=== PATIENT | female | born 1950 | race Caucasian/White ===

== ENCOUNTER 2022-03-13 23:42 | Inpatient (IN) ==
[2022-03-13 23:59] LABS: ABS Eosinophils 0.1 10^3/ul (0-0.6); ABS Lymphocytes 0.9 10^3/ul (1.0-4.8); ABS Monocytes 0.3 10^3/ul (0-0.8); ABS Neutrophils 8.2 10^3/ul (1.5-7.7); Hematocrit 33 % (35-47); Hemoglobin 10.7 g/dL (12.0-16.0); Lymphocyte % 9.8 %; Mean Corpuscular HGB Conc 32 g/dL (31-36); Mean Corpuscular Hemoglobin 29 pg (27-31); Mean Corpuscular Volume 91 fL (80-97); Platelet Count 244 10^3/uL (150-450); Red Blood Count 3.68 10^6 /uL (3.70-4.87); Red Cell Distribution Width 15 % (10-15); White Blood Count 9.6 10^3/uL (3.5-10.8)
[2022-03-14 00:22] LABS: High Sens Troponin Baseline 39 pg/mL (<15)
[2022-03-14] MEDS ORDERED: Droperidol 5 MG/2 ML 2 ML VIAL IV ONE (00:36)
[2022-03-14 00:42] LABS: ALT 4 U/L (7-52); Albumin 3.8 g/dL (3.2-5.2); Albumin/Globulin Ratio 1.2 (1-3); Alkaline Phosphatase 52 U/L (35-149); Blood Urea Nitrogen 30 mg/dL (6-24); CO2 Carbon Dioxide 20 mmol/L (22-32); Chloride 105 mmol/L (101-111); Globulin 3.1 g/dL (2-4); Glucose 103 mg/dL (70-100); Sodium 137 mmol/L (135-145); Total Protein 6.9 g/dL (6.4-8.9); eGFR CKD-EPI 14.4 (>60)
[2022-03-14 00:48] LABS: Anion Gap 12 mmol/L (2-11); Calcium 15.2 mg/dL (8.6-10.3)
[2022-03-14] MEDS ORDERED: NS 0.9% 1000 ml BAG 2,000 ML IV ONE (00:54)
[2022-03-14 01:28] LABS: INR 0.97 (0.89-1.11)
[2022-03-14] MEDS ORDERED: Morphine 4 MG/ML VIAL (1 ml) IV ONE (02:01)
[2022-03-14] MEDS ORDERED: Morphine 4 MG/ML VIAL (1 ml) IV PRN ×2 (02:01→06:31)
[2022-03-14] MEDS ORDERED: Ondansetron 4 mg VIAL 2 MG/ML 2 ml VIAL IV PRN (02:04)
[2022-03-14 02:09] LABS: High Sensitivity Troponin 1 Hr 59 pg/mL (<15)
[2022-03-14 02:20] LABS: Potassium Redraw 3.1 mmol/L (3.5-5.0)
[2022-03-14] MEDS ORDERED: Calcitonin (Salmon) INJ 200 UNITS/ML 2 ML VIAL (400 units) SUBCUT ONE ×2 (02:54→19:42)
[2022-03-14] MEDS ORDERED: Zoledronic Acid 4 MG in NS 0.9% 100 ml BAG 100 ML IVPB ONE (02:56)
[2022-03-14] MEDS ORDERED: Potassium Chlor 20 meq TAB.ER PO ONE ×2 (03:01→03:31)
[2022-03-14] MEDS ORDERED: Magnesium Sulfate 2 gm BAG 2 GM/50 ML BAG IVPB ONE ×2 (03:11→03:30)
[2022-03-14 03:28] LABS: Urine Appearance Clear; Urine Color Yellow; Urine Ketones Negative (Negative); Urine Specific Gravity 1.015 (1.005-1.030); Urine Urobilinogen 0.2 (Negative) (Negative)
[2022-03-14 03:29] LABS: Urine Bilirubin Negative (Negative); Urine Blood Trace (Intact) (Negative); Urine Glucose Negative (Negative); Urine Nitrite Negative (Negative); Urine Protein 1+ (30 mg/dL) (Negative)
[2022-03-14 03:30] LABS: Magnesium 1.3 mg/dL (1.9-2.7)
[2022-03-14 03:46] LABS: Urine Bacteria Absent (Absent); Urine Red Blood Cell 2+(6-10/hpf) (Absent); Urine Squamous Epithelial Cell Present (Absent); Urine Transitional Epithelial Present (Absent); Urine White Blood Cell 3+(>20/hpf) (Absent); Urine Yeast Present (Absent)
[2022-03-14] MEDS: NS 0.9% 1000 ml BAG 1,000 ML IV SCH ×4 (03:57→22:14)
[2022-03-14 05:08] LABS: Potassium 2.9 mmol/L (3.5-5.0); eGFR CKD-EPI 15.7 (>60)
[2022-03-14 05:13] LABS: Calcium 14.4 mg/dL (8.6-10.3)
[2022-03-14 05:29] LABS: Calcium (PTH Intact) 14.4 mg/dL (8.6-10.3)
[2022-03-14] MEDS: Enoxaparin 30 MG/0.3 ML SYR SUBCUT SCH (06:33)
[2022-03-14 10:52] LABS: Hematocrit 31 % (35-47); Hemoglobin 10.2 g/dL (12.0-16.0); Mean Corpuscular HGB Conc 33 g/dL (31-36); Mean Corpuscular Hemoglobin 29 pg (27-31); Mean Corpuscular Volume 90 fL (80-97); Mean Platelet Volume 8.1 fL (7.4-10.4); Platelet Count 211 10^3/uL (150-450); Red Blood Count 3.49 10^6 /uL (3.70-4.87); Red Cell Distribution Width 15 % (10-15); White Blood Count 16.8 10^3/uL (3.5-10.8)
[2022-03-14] MEDS: Morphine 4 MG/ML VIAL (1 ml) IV PRN ×4 (10:59→21:17)
[2022-03-14] MEDS: [UNRECOGNIZED DRUG - REMARK] PO SCH ×2 (10:59→21:22)
[2022-03-14 11:28] LABS: High Sensitivity Troponin 3 Hr 74 pg/mL (<15)
[2022-03-14 12:31] LABS: Anion Gap 8 mmol/L (2-11); CO2 Carbon Dioxide 22 mmol/L (22-32); Chloride 106 mmol/L (101-111); Magnesium 1.3 mg/dL (1.9-2.7); Potassium 4.4 mmol/L (3.5-5.0); Sodium 136 mmol/L (135-145)
[2022-03-14 12:37] LABS: Blood Urea Nitrogen 30 mg/dL (6-24); Glucose 99 mg/dL (70-100); eGFR CKD-EPI 17.7 (>60)
[2022-03-14 12:50] LABS: Calcium 13.2 mg/dL (8.6-10.3)
[2022-03-14 12:54] LABS: Total Iron Binding Capacity 309 mcg/dL (250-450); Transferrin 221 mg/dL (203-362)
[2022-03-14 13:04] LABS: % Iron Saturation 6 % (15-55); Iron < 20 ug/dL (50-212); Unsaturated Iron Binding 289 ug/dL
[2022-03-14] MEDS ORDERED: Magnesium Sulf 4 GM/100 ML IV 4,000 MG/100 ML BAG IVPB ONE (13:11)
[2022-03-14 14:02] LABS: Ferritin 35.4 ng/mL (11-307)
[2022-03-14 19:54] LABS: Calcium 12.1 mg/dL (8.6-10.3); Magnesium 3.4 mg/dL (1.9-2.7); Potassium 4.2 mmol/L (3.5-5.0); eGFR CKD-EPI 21.9 (>60)
[2022-03-15] MEDS: Morphine 4 MG/ML VIAL (1 ml) IV PRN ×4 (01:28→08:34)
[2022-03-15 05:54] LABS: Hematocrit 26 % (35-47); Hemoglobin 8.4 g/dL (12.0-16.0); Mean Corpuscular HGB Conc 33 g/dL (31-36); Mean Corpuscular Hemoglobin 30 pg (27-31); Mean Corpuscular Volume 91 fL (80-97); Mean Platelet Volume 8.4 fL (7.4-10.4); Platelet Count 170 10^3/uL (150-450); Red Blood Count 2.82 10^6 /uL (3.70-4.87); Red Cell Distribution Width 15 % (10-15); White Blood Count 8.8 10^3/uL (3.5-10.8)
[2022-03-15 06:12] LABS: Calcium 10.4 mg/dL (8.6-10.3); Magnesium 2.6 mg/dL (1.9-2.7); Potassium 3.5 mmol/L (3.5-5.0); eGFR CKD-EPI 26.4 (>60)
[2022-03-15] MEDS: Enoxaparin 30 MG/0.3 ML SYR SUBCUT SCH (06:18)
[2022-03-15] MEDS: [UNRECOGNIZED DRUG - REMARK] PO SCH ×2 (08:34→22:28)
[2022-03-15] MEDS ORDERED: NS 0.9% 1000 ml BAG 1,000 ML IV SCH ×2 (10:37→10:38)
[2022-03-15] MEDS ORDERED: NS 0.9% 500 ml BAG 500 ML IV SCH (11:00)
[2022-03-15] MEDS: Morphine 2 MG/ML SYRINGE IV PRN (12:05)
[2022-03-15 12:23] LABS: Free T3 2.1 pg/mL (2.5-3.9)
[2022-03-15 12:24] LABS: TSH Ultra Thyroid Stim Horm 0.55 mcIU/mL (0.34-5.60)
[2022-03-15 12:26] LABS: Free T4 1.4 ng/dL (0.61-1.12)
[2022-03-15] MEDS ORDERED: Midazolam 10 mg/10 ml VIAL 1 mg/ml 10 ml VIAL (10 mg) ONE (16:30)
[2022-03-15] MEDS ORDERED: fentaNYL 100 mcg/2 ml 50 MCG/ML VIAL ONE (16:31)
[2022-03-16] MEDS: Morphine 2 MG/ML SYRINGE IV PRN ×6 (02:08→20:46)
[2022-03-16] MEDS: Enoxaparin 30 MG/0.3 ML SYR SUBCUT SCH (06:07)
[2022-03-16 07:05] LABS: Hematocrit 26 % (35-47); Hemoglobin 8.5 g/dL (12.0-16.0); Mean Corpuscular HGB Conc 33 g/dL (31-36); Mean Corpuscular Hemoglobin 30 pg (27-31); Mean Corpuscular Volume 90 fL (80-97); Mean Platelet Volume 8.6 fL (7.4-10.4); Platelet Count 179 10^3/uL (150-450); Red Blood Count 2.84 10^6 /uL (3.70-4.87); Red Cell Distribution Width 15 % (10-15); White Blood Count 6.5 10^3/uL (3.5-10.8)
[2022-03-16 07:17] LABS: Calcium 8.8 mg/dL (8.6-10.3); Potassium 2.8 mmol/L (3.5-5.0); eGFR CKD-EPI 30.6 (>60)
[2022-03-16] MEDS ORDERED: Potassium Chlor 20 meq TAB.ER PO ONE (07:22)
[2022-03-16] MEDS: Dextrose 50% Syringe 50 ml 25 GM/50 ML SYRINGE IV PUSH PRN ×2 (08:03→14:46)
[2022-03-16] MEDS ORDERED: Glucose ORAL 15 GM TUBE PO ONE (08:17)
[2022-03-16] MEDS: [UNRECOGNIZED DRUG - REMARK] PO SCH ×2 (09:48→20:45)
[2022-03-16] MEDS: cefTRIAXone 1 gm/50 mL D5W 1 GM/50 ML BAG IV SCH (11:48)
[2022-03-16] MEDS: Iron Sucrose 200 MG in NS 0.9% 100 ml BAG 100 ML IVPB SCH (13:01)
[2022-03-16] MEDS ORDERED: D5NS 0.9% 1000 ml BAG 1,000 ML IV SCH (18:00)
[2022-03-17] MEDS: Morphine 2 MG/ML SYRINGE IV PRN ×6 (00:07→20:02)
[2022-03-17] MEDS: Enoxaparin 30 MG/0.3 ML SYR SUBCUT SCH (06:12)
[2022-03-17] MEDS: Iron Sucrose 200 MG in NS 0.9% 100 ml BAG 100 ML IVPB SCH (08:37)
[2022-03-17] MEDS: [UNRECOGNIZED DRUG - REMARK] PO SCH ×2 (08:37→20:04)
[2022-03-17] MEDS ORDERED: Potassium Chlor 20 meq TAB.ER PO SCH ×2 (09:00→17:00)
[2022-03-17 11:13] LABS: Hematocrit 25 % (35-47); Hemoglobin 8.6 g/dL (12.0-16.0); Mean Corpuscular HGB Conc 34 g/dL (31-36); Mean Corpuscular Hemoglobin 30 pg (27-31); Mean Corpuscular Volume 88 fL (80-97); Mean Platelet Volume 7.8 fL (7.4-10.4); Platelet Count 167 10^3/uL (150-450); Red Blood Count 2.86 10^6 /uL (3.70-4.87); Red Cell Distribution Width 15 % (10-15); White Blood Count 5.7 10^3/uL (3.5-10.8)
[2022-03-17] MEDS: cefTRIAXone 1 gm/50 mL D5W 1 GM/50 ML BAG IV SCH (11:20)
[2022-03-17 11:52] LABS: Calcium 7.4 mg/dL (8.6-10.3); Magnesium 1.4 mg/dL (1.9-2.7); Potassium 2.8 mmol/L (3.5-5.0); eGFR CKD-EPI 39.2 (>60)
[2022-03-17] MEDS: Pantoprazole 80 mg in NS BAG 80 MG/250 ML BAG IV SCH (14:33)
[2022-03-17] MEDS ORDERED: Magnesium Sulfate IV 3 GM in NS 0.9% 100 ml BAG 100 ML IVPB ONE (14:41)
[2022-03-17] MEDS ORDERED: Magnesium Sulfate 2 GM IV (Premix) IVPB ONE (15:00)
[2022-03-17] MEDS ORDERED: Magnesium Sulfate 1 GM IV 1 GM/100 ML BAG IV ONE (16:00)
[2022-03-17] MEDS: KCL 20 MEQ/100 ML IVPREMIX 20 MEQ/100 ML BAG IV SCH ×2 (18:00→21:40)
[2022-03-18] MEDS: Pantoprazole 80 mg in NS BAG 80 MG/250 ML BAG IV SCH ×2 (00:03→11:01)
[2022-03-18] MEDS: Morphine 2 MG/ML SYRINGE IV PRN ×6 (00:08→19:04)
[2022-03-18] MEDS: Enoxaparin 30 MG/0.3 ML SYR SUBCUT SCH (05:29)
[2022-03-18 07:55] LABS: Calcium 6.8 mg/dL (8.6-10.3); Magnesium 1.8 mg/dL (1.9-2.7); eGFR CKD-EPI 44.8 (>60)
[2022-03-18 08:12] LABS: Potassium 2.6 mmol/L (3.5-5.0)
[2022-03-18] MEDS ORDERED: Potassium Chlor 20 meq TAB.ER PO ONE (08:32)
[2022-03-18] MEDS: [UNRECOGNIZED DRUG - REMARK] PO SCH ×2 (10:00→20:25)
[2022-03-18] MEDS: Iron Sucrose 200 MG in NS 0.9% 100 ml BAG 100 ML IVPB SCH (10:00)
[2022-03-18] MEDS: KCL 20 MEQ/100 ML IVPREMIX 20 MEQ/100 ML BAG IV SCH ×3 (10:01→15:25)
[2022-03-18] MEDS: cefTRIAXone 1 gm/50 mL D5W 1 GM/50 ML BAG IV SCH (10:53)
[2022-03-18] MEDS ORDERED: Aminophylline 25 MG/ML VIAL ONE (12:37)
[2022-03-18] MEDS ORDERED: Regadenoson 0.4 MG/5 ML SYRINGE ONE (12:37)
[2022-03-18 18:08] LABS: Calcium 6.5 mg/dL (8.6-10.3); Potassium 3.8 mmol/L (3.5-5.0); eGFR CKD-EPI 44.8 (>60)
[2022-03-19] MEDS: Pantoprazole 80 mg in NS BAG 80 MG/250 ML BAG IV SCH ×4 (01:26→22:33)
[2022-03-19] MEDS: Morphine 2 MG/ML SYRINGE IV PRN ×6 (01:36→21:36)
[2022-03-19 05:42] LABS: Hematocrit 25 % (35-47); Hemoglobin 8.6 g/dL (12.0-16.0); Mean Corpuscular HGB Conc 35 g/dL (31-36); Mean Corpuscular Hemoglobin 31 pg (27-31); Mean Corpuscular Volume 88 fL (80-97); Mean Platelet Volume 7.9 fL (7.4-10.4); Platelet Count 186 10^3/uL (150-450); Red Blood Count 2.81 10^6 /uL (3.70-4.87); Red Cell Distribution Width 16 % (10-15)
[2022-03-19] MEDS: Enoxaparin 30 MG/0.3 ML SYR SUBCUT SCH (05:59)
[2022-03-19 06:08] LABS: Blood Urea Nitrogen 9 mg/dL (6-24); CO2 Carbon Dioxide 21 mmol/L (22-32); Glucose 76 mg/dL (70-100); Magnesium 1.3 mg/dL (1.9-2.7); Sodium 143 mmol/L (135-145); eGFR CKD-EPI 47.9 (>60)
[2022-03-19 06:15] LABS: Anion Gap 8 mmol/L (2-11); Calcium 6.2 mg/dL (8.6-10.3); Chloride 114 mmol/L (101-111)
[2022-03-19] MEDS ORDERED: Calcium Gluconate 2 GM in NS 0.9% 100 ml BAG 100 ML IV ONE (08:15)
[2022-03-19] MEDS: Magnesium Sulf 4 GM/100 ML IV 4,000 MG/100 ML BAG IVPB ONE ×2 (09:41→11:38)
[2022-03-19] MEDS: [UNRECOGNIZED DRUG - REMARK] PO SCH ×2 (09:42→21:37)
[2022-03-19 10:33] LABS: High Sensitivity Troponin 1 Hr 15 pg/mL (<15)
[2022-03-19] MEDS: Iron Sucrose 200 MG in NS 0.9% 100 ml BAG 100 ML IVPB SCH ×2 (10:46→11:40)
[2022-03-19 11:15] LABS: Urine Potassium Concentration 20.8 mmol/L
[2022-03-19 16:58] LABS: Potassium 2.8 mmol/L (3.5-5.0); eGFR CKD-EPI 49.4 (>60)
[2022-03-19] MEDS ORDERED: Potassium Chlor 20 meq TAB.ER PO ONE (17:05)
[2022-03-19 19:20] LABS: Magnesium 3.4 mg/dL (1.9-2.7)
[2022-03-19 22:13] LABS: Vitamin D Total 25(OH) < 7.0 ng/mL (20-50)
[2022-03-20] MEDS: Morphine 2 MG/ML SYRINGE IV PRN ×8 (02:22→21:48)
[2022-03-20] MEDS: Enoxaparin 30 MG/0.3 ML SYR SUBCUT SCH (05:34)
[2022-03-20 06:05] LABS: Hematocrit 26 % (35-47); Mean Corpuscular HGB Conc 35 g/dL (31-36); Mean Corpuscular Hemoglobin 30 pg (27-31); Mean Corpuscular Volume 88 fL (80-97); Mean Platelet Volume 7.8 fL (7.4-10.4); Platelet Count 194 10^3/uL (150-450); Red Blood Count 2.97 10^6 /uL (3.70-4.87); Red Cell Distribution Width 16 % (10-15); White Blood Count 6.3 10^3/uL (3.5-10.8)
[2022-03-20 06:33] LABS: Magnesium 2.1 mg/dL (1.9-2.7); Potassium 3.5 mmol/L (3.5-5.0); eGFR CKD-EPI 50.4 (>60)
[2022-03-20 06:37] LABS: Calcium 6.1 mg/dL (8.6-10.3)
[2022-03-20] MEDS ORDERED: Calcium Gluconate 3 GM in NS 0.9% 250 ml 250 ML IV ONE (07:38)
[2022-03-20] MEDS ORDERED: Polyethylene Glycol 3350 17 GM PACKET PO ONE (08:04)
[2022-03-20] MEDS ORDERED: Senna TAB 8.6 mg TAB PO ONE (08:05)
[2022-03-20] MEDS: Iron Sucrose 200 MG in NS 0.9% 100 ml BAG 100 ML IVPB SCH (09:23)
[2022-03-20] MEDS: [UNRECOGNIZED DRUG - REMARK] PO SCH ×2 (09:23→20:22)
[2022-03-20] MEDS: Pantoprazole 80 mg in NS BAG 80 MG/250 ML BAG IV SCH (09:46)
[2022-03-20 14:46] LABS: Blood Urea Nitrogen 8 mg/dL (6-24); CO2 Carbon Dioxide 21 mmol/L (22-32); Glucose 110 mg/dL (70-100); Magnesium 1.8 mg/dL (1.9-2.7); Potassium 3.4 mmol/L (3.5-5.0); Sodium 144 mmol/L (135-145)
[2022-03-20 14:56] LABS: Anion Gap 8 mmol/L (2-11); Chloride 115 mmol/L (101-111)
[2022-03-20 14:59] LABS: Phosphorus < 1.0 mg/dL (2.5-5.0)
[2022-03-20] MEDS ORDERED: CHOLECALCIFEROL 50000 UNIT PO SCH (15:00)
[2022-03-20] MEDS ORDERED: Magnesium Sulfate 2 gm BAG 2 GM/50 ML BAG IVPB ONE (15:12)
[2022-03-20] MEDS ORDERED: Potassium Phosphate IV 15 MMOLE in NS 0.9% 250 ml 250 ML IVPB ONE (16:00)
[2022-03-20] MEDS ORDERED: Calcium (OSCAL) 500 mg TAB PO SCH (16:00)
[2022-03-20] MEDS: Calcium Citrate 200 mg TAB PO SCH (16:27)
[2022-03-20] MEDS ORDERED: Calcium Citrate 200 mg TAB PO SCH (21:00)
[2022-03-21] MEDS: Morphine 2 MG/ML SYRINGE IV PRN ×4 (00:21→11:24)
[2022-03-21] MEDS: Enoxaparin 30 MG/0.3 ML SYR SUBCUT SCH (04:47)
[2022-03-21 05:37] LABS: Hematocrit 25 % (35-47); Hemoglobin 8.6 g/dL (12.0-16.0); Mean Corpuscular HGB Conc 34 g/dL (31-36); Mean Corpuscular Hemoglobin 30 pg (27-31); Mean Corpuscular Volume 89 fL (80-97); Mean Platelet Volume 7.1 fL (7.4-10.4); Platelet Count 180 10^3/uL (150-450); Red Blood Count 2.87 10^6 /uL (3.70-4.87); Red Cell Distribution Width 17 % (10-15); White Blood Count 6.5 10^3/uL (3.5-10.8)
[2022-03-21 06:27] LABS: Magnesium 1.6 mg/dL (1.9-2.7); Potassium 3.1 mmol/L (3.5-5.0); eGFR CKD-EPI 53.1 (>60)
[2022-03-21 06:31] LABS: Calcium 5.7 mg/dL (8.6-10.3)
[2022-03-21] MEDS: Iron Sucrose 200 MG in NS 0.9% 100 ml BAG 100 ML IVPB SCH (07:27)
[2022-03-21] MEDS: Calcium Citrate 200 mg TAB PO SCH ×2 (07:28→19:56)
[2022-03-21] MEDS: [UNRECOGNIZED DRUG - REMARK] PO SCH ×2 (07:28→19:55)
[2022-03-21] MEDS ORDERED: Magnesium Sulf 4 GM/100 ML IV 4,000 MG/100 ML BAG IVPB ONE (07:45)
[2022-03-21 09:12] LABS: Phosphorus 1.4 mg/dL (2.5-5.0)
[2022-03-21] MEDS ORDERED: Potassium Phosphate IV 15 MMOLE in NS 0.9% 250 ml 250 ML IVPB ONE (09:22)
[2022-03-22] MEDS: Enoxaparin 30 MG/0.3 ML SYR SUBCUT SCH (06:21)
[2022-03-22 07:11] VITALS: BP 100/52
[2022-03-22] MEDS: Calcium Citrate 200 mg TAB PO SCH (07:38)
[2022-03-22] MEDS: [UNRECOGNIZED DRUG - REMARK] PO SCH (07:38)
[2022-03-22] MEDS: Iron Sucrose 200 MG in NS 0.9% 100 ml BAG 100 ML IVPB SCH (07:39)
[2022-03-23 15:05] LABS: Urine Citrate Excretion <48 mg/24 h; Urine Collection Duration 24 h; Urine Volume 2390 mL
== END 2022-03-22 11:29 | disposition home or self-care (01) | DRG 640 ==
LOC: ED 23:42 → EDHOLD 03-14 03:34 → SUATTDRO 03-14 03:34 → MEDTELE 03-14 09:16
PROVIDERS: ADMIT Internal Medicine; ATTEND Student in an Organized Health Care Education/Training Program

== ENCOUNTER 2022-05-16 14:54 | Inpatient (IN) ==
[2022-05-16] MEDS ORDERED: Lactated Ringers 1000 ml BAG 1,000 ML IV ONE (15:30)
[2022-05-16] MEDS ORDERED: fentaNYL 100 mcg/2 ml 50 MCG/ML VIAL IV SLOW PU ONE ×3 (15:30→20:09)
[2022-05-16] MEDS ORDERED: Ondansetron 4 mg VIAL 2 MG/ML 2 ml VIAL IV ONE (15:56)
[2022-05-16 17:13] LABS: ABS Lymphocytes 0.9 10^3/ul (1.0-4.8); ABS Monocytes 0.6 10^3/ul (0-0.8); ABS Neutrophils 8.6 10^3/ul (1.5-7.7); Eosinophil % 0.1 %; Hematocrit 41 % (35-47); Hemoglobin 13.4 g/dL (12.0-16.0); Lymphocyte % 8.9 %; Mean Corpuscular HGB Conc 33 g/dL (31-36); Mean Corpuscular Hemoglobin 30 pg (27-31); Mean Corpuscular Volume 91 fL (80-97); Mean Platelet Volume 7.8 fL (7.4-10.4); Nucleated Red Blood Cells % 0.1; Platelet Count 211 10^3/uL (150-450); Red Blood Count 4.55 10^6 /uL (3.70-4.87); Red Cell Distribution Width 17 % (10-15); White Blood Count 10.1 10^3/uL (3.5-10.8)
[2022-05-16 17:25] LABS: Activated Partial Thrombo Time 27.1 seconds (26.0-38.0); INR 1.17 (0.89-1.11)
[2022-05-16 17:57] LABS: Albumin 3.8 g/dL (3.2-5.2); Albumin/Globulin Ratio 0.9 (1-3); C Reactive Protein 179.7 mg/L (<8.01); Globulin 4.1 g/dL (2-4); Potassium 3.2 mmol/L (3.5-5.0); Total Bilirubin 0.8 mg/dL (0.2-1.0); Total Protein 7.9 g/dL (6.4-8.9); eGFR CKD-EPI 8.5 (>60)
[2022-05-16 18:37] LABS: High Sensitivity Troponin 1 Hr 68 pg/mL (<15)
[2022-05-16] MEDS ORDERED: NS 0.9% 1000 ml BAG 1,000 ML IV ONE (19:41)
[2022-05-16] MEDS ORDERED: NS 0.9% 1000 ml BAG 1,000 ML IV SCH (22:00)
[2022-05-16] MEDS: Potassium Chlor 20 meq TAB.ER PO ONE ×2 (22:39→22:45)
[2022-05-16 23:22] LABS: Urine Appearance Turbid; Urine Bilirubin Negative (Negative); Urine Blood 1+ (Negative); Urine Color Amber; Urine Glucose Negative (Negative); Urine Ketones Negative (Negative); Urine Nitrite Negative (Negative); Urine Protein 2+(100 mg/dL) (Negative); Urine Specific Gravity 1.013 (1.002-1.030); Urine Urobilinogen Negative (Negative)
[2022-05-16 23:45] LABS: Urine Bacteria 2+ (Absent); Urine Red Blood Cell 1+(3-5/hpf) (Absent); Urine White Blood Cell 3+(>20/hpf) (Absent)
[2022-05-17] MEDS: KCL 10 MEQ/50 ML IVPREMIX 10 MEQ/50 ML BAG IV SCH ×2 (00:05→01:57)
[2022-05-17 01:13] LABS: Magnesium 1.4 mg/dL (1.9-2.7)
[2022-05-17] MEDS ORDERED: Magnesium Sulf 4 GM/100 ML IV 4,000 MG/100 ML BAG IVPB ONE ×2 (01:39→09:00)
[2022-05-17] MEDS: cefTRIAXone 1 gm/50 mL D5W 1 GM/50 ML BAG IV SCH (03:10)
[2022-05-17 05:23] LABS: ABS Eosinophils 0.1 10^3/ul (0-0.6); ABS Lymphocytes 1.3 10^3/ul (1.0-4.8); ABS Monocytes 0.6 10^3/ul (0-0.8); ABS Neutrophils 7.9 10^3/ul (1.5-7.7); Eosinophil % 0.8 %; Hematocrit 35 % (35-47); Hemoglobin 11.2 g/dL (12.0-16.0); Lymphocyte % 12.9 %; Mean Corpuscular HGB Conc 32 g/dL (31-36); Mean Corpuscular Hemoglobin 30 pg (27-31); Mean Corpuscular Volume 92 fL (80-97); Mean Platelet Volume 8.3 fL (7.4-10.4); Nucleated Red Blood Cells % 0.2; Platelet Count 132 10^3/uL (150-450); Red Blood Count 3.79 10^6 /uL (3.70-4.87); Red Cell Distribution Width 16 % (10-15); White Blood Count 9.9 10^3/uL (3.5-10.8)
[2022-05-17 05:25] LABS: C Reactive Protein 119.82 mg/L (<8.01); Calcium 8.7 mg/dL (8.6-10.3); Magnesium 1.2 mg/dL (1.9-2.7); Potassium 3.5 mmol/L (3.5-5.0); Total Bilirubin 0.6 mg/dL (0.2-1.0); eGFR CKD-EPI 11.2 (>60)
[2022-05-17 05:47] LABS: Total Protein 5.8 g/dL (6.4-8.9)
[2022-05-17 05:48] LABS: Albumin 2.9 g/dL (3.2-5.2); Globulin 2.9 g/dL (2-4)
[2022-05-17] MEDS: Prochlorperazine 5 mg/ml 2 ml VIAL (10 mg) IV PRN ×2 (08:35→15:05)
[2022-05-17] MEDS ORDERED: Magnesium Sulfate 2 gm BAG 2 GM/50 ML BAG ONE (09:39)
[2022-05-17] MEDS: Venlafaxine 25 mg TAB (NF) PO SCH ×2 (10:01→21:03)
[2022-05-17] MEDS: Heparin 5000 UNITS/ML 1 mL VIAL SUBCUT SCH ×2 (10:01→21:00)
[2022-05-17] MEDS: Potassium Chlor 20 meq TAB.ER PO SCH (10:03)
[2022-05-17 16:10] LABS: Phosphorus 1.8 mg/dL (2.5-5.0)
[2022-05-17 16:29] LABS: Vitamin D Total 25(OH) 30.7 ng/mL (20-50)
[2022-05-17] MEDS: Senna TAB 8.6 mg TAB PO PRN (21:00)
[2022-05-18] MEDS: cefTRIAXone 1 gm/50 mL D5W 1 GM/50 ML BAG IV SCH (01:25)
[2022-05-18 07:19] LABS: CO2 Carbon Dioxide 17 mmol/L (22-32); Calcium 8.4 mg/dL (8.6-10.3); Chloride 103 mmol/L (101-111); Sodium 130 mmol/L (135-145)
[2022-05-18 07:25] LABS: Blood Urea Nitrogen 48 mg/dL (6-24); Glucose 95 mg/dL (70-100); eGFR CKD-EPI 18.7 (>60)
[2022-05-18 07:40] LABS: Anion Gap 10 mmol/L (2-11)
[2022-05-18] MEDS: Heparin 5000 UNITS/ML 1 mL VIAL SUBCUT SCH ×2 (08:53→21:00)
[2022-05-18] MEDS: Potassium Chlor 20 meq TAB.ER PO SCH (08:53)
[2022-05-18 10:53] LABS: Hematocrit 29 % (35-47); Hemoglobin 9.4 g/dL (12.0-16.0); Mean Corpuscular HGB Conc 33 g/dL (31-36); Mean Corpuscular Hemoglobin 29 pg (27-31); Mean Corpuscular Volume 89 fL (80-97); Mean Platelet Volume 7.5 fL (7.4-10.4); Platelet Count 158 10^3/uL (150-450); Red Blood Count 3.22 10^6 /uL (3.70-4.87); Red Cell Distribution Width 17 % (10-15); White Blood Count 9.2 10^3/uL (3.5-10.8)
[2022-05-18] MEDS: Venlafaxine 25 mg TAB (NF) PO SCH ×2 (10:54→20:59)
[2022-05-18 11:25] LABS: Potassium Redraw 3.2 mmol/L (3.5-5.0)
[2022-05-18 11:44] LABS: Magnesium 5.5 mg/dL (1.9-2.7)
[2022-05-18] MEDS ORDERED: Potassium Chlor 20 meq TAB.ER PO ONE (18:01)
[2022-05-19 08:10] LABS: Hematocrit 29 % (35-47); Hemoglobin 9.5 g/dL (12.0-16.0); Mean Corpuscular HGB Conc 33 g/dL (31-36); Mean Corpuscular Hemoglobin 30 pg (27-31); Mean Corpuscular Volume 91 fL (80-97); Mean Platelet Volume 7.7 fL (7.4-10.4); Platelet Count 138 10^3/uL (150-450); Red Blood Count 3.21 10^6 /uL (3.70-4.87); Red Cell Distribution Width 17 % (10-15); White Blood Count 8.2 10^3/uL (3.5-10.8)
[2022-05-19 08:30] LABS: Calcium 8.6 mg/dL (8.6-10.3); eGFR CKD-EPI 20.4 (>60)
[2022-05-19 08:39] LABS: Magnesium 4.9 mg/dL (1.9-2.7)
[2022-05-19] MEDS: Potassium Chlor 20 meq TAB.ER PO SCH (08:44)
[2022-05-19] MEDS: Heparin 5000 UNITS/ML 1 mL VIAL SUBCUT SCH ×2 (08:45→21:20)
[2022-05-19] MEDS: Venlafaxine 25 mg TAB (NF) PO SCH ×2 (13:36→21:25)
[2022-05-20 06:27] LABS: Hematocrit 29 % (35-47); Hemoglobin 9.5 g/dL (12.0-16.0); Mean Corpuscular HGB Conc 32 g/dL (31-36); Mean Corpuscular Hemoglobin 30 pg (27-31); Mean Corpuscular Volume 91 fL (80-97); Mean Platelet Volume 7.9 fL (7.4-10.4); Platelet Count 123 10^3/uL (150-450); Red Blood Count 3.22 10^6 /uL (3.70-4.87); Red Cell Distribution Width 17 % (10-15); White Blood Count 8.6 10^3/uL (3.5-10.8)
[2022-05-20 07:21] LABS: Calcium 8.3 mg/dL (8.6-10.3); Potassium 4.9 mmol/L (3.5-5.0); eGFR CKD-EPI 24.2 (>60)
[2022-05-20] MEDS: Polyethylene Glycol 3350 17 GM PACKET PO PRN (08:56)
[2022-05-20] MEDS: Senna TAB 8.6 mg TAB PO PRN (08:58)
[2022-05-20] MEDS: Venlafaxine 25 mg TAB (NF) PO SCH ×2 (08:58→21:42)
[2022-05-20] MEDS: Potassium Chlor 20 meq TAB.ER PO SCH (08:59)
[2022-05-20] MEDS: Heparin 5000 UNITS/ML 1 mL VIAL SUBCUT SCH ×2 (09:08→21:38)
[2022-05-21] MEDS: Venlafaxine 25 mg TAB (NF) PO SCH ×3 (07:46→20:07)
[2022-05-21 08:16] LABS: Calcium 8.1 mg/dL (8.6-10.3); Magnesium 3.1 mg/dL (1.9-2.7); Potassium 4.9 mmol/L (3.5-5.0)
[2022-05-21] MEDS: Heparin 5000 UNITS/ML 1 mL VIAL SUBCUT SCH ×2 (08:36→20:07)
[2022-05-21] MEDS: Potassium Chlor 20 meq TAB.ER PO SCH (08:36)
[2022-05-21] MEDS: Polyethylene Glycol 3350 17 GM PACKET PO PRN (15:41)
[2022-05-21] MEDS: Senna TAB 8.6 mg TAB PO PRN (15:42)
[2022-05-21 16:13] LABS: Rapid COVID-19 Molecular Undetected (Undetected)
[2022-05-21] MEDS ORDERED: Sodium Phosphate ADULT ENEMA 133 ML BTL PR ONE (16:29)
[2022-05-22 05:44] LABS: Hematocrit 25 % (35-47); Hemoglobin 8.5 g/dL (12.0-16.0); Mean Corpuscular HGB Conc 34 g/dL (31-36); Mean Corpuscular Hemoglobin 30 pg (27-31); Mean Corpuscular Volume 90 fL (80-97); Mean Platelet Volume 7.2 fL (7.4-10.4); Platelet Count 117 10^3/uL (150-450); Red Cell Distribution Width 18 % (10-15); White Blood Count 4.8 10^3/uL (3.5-10.8)
[2022-05-22 06:11] LABS: ABS Eosinophils 0.1 10^3/ul (0-0.6); ABS Lymphocytes 1.8 10^3/ul (1.0-4.8); ABS Monocytes 0.5 10^3/ul (0-0.8); ABS Neutrophils 2.3 10^3/ul (1.5-7.7); Eosinophil % 2.8 %; Lymphocyte % 37.5 %; Nucleated Red Blood Cells % 0.1
[2022-05-22 06:25] LABS: Anion Gap 6 mmol/L (2-11); Blood Urea Nitrogen 29 mg/dL (6-24); CO2 Carbon Dioxide 22 mmol/L (22-32); Calcium 6.9 mg/dL (8.6-10.3); Chloride 109 mmol/L (101-111); Glucose 60 mg/dL (70-100); Magnesium 2.2 mg/dL (1.9-2.7); Potassium 4.3 mmol/L (3.5-5.0); Sodium 137 mmol/L (135-145)
[2022-05-22 06:36] LABS: TSH Ultra Thyroid Stim Horm 2.27 mcIU/mL (0.34-5.60)
[2022-05-22] MEDS ORDERED: Sodium Phosphate ADULT ENEMA 133 ML BTL PR PRN (06:48)
[2022-05-22 08:41] LABS: Folate 2.89 ng/mL (5.90-24.80)
[2022-05-22] MEDS: Venlafaxine 25 mg TAB (NF) PO SCH ×2 (08:55→21:15)
[2022-05-22] MEDS: Potassium Chlor 20 meq TAB.ER PO SCH (08:56)
[2022-05-22] MEDS: Heparin 5000 UNITS/ML 1 mL VIAL SUBCUT SCH ×2 (08:56→21:14)
[2022-05-22 09:40] LABS: Vitamin B12 > 1450 pg/mL (180-914)
[2022-05-22] MEDS: Senna TAB 8.6 mg TAB PO PRN (21:15)
[2022-05-23 05:47] LABS: Hematocrit 26 % (35-47); Hemoglobin 8.5 g/dL (12.0-16.0); Mean Corpuscular HGB Conc 33 g/dL (31-36); Mean Corpuscular Hemoglobin 30 pg (27-31); Mean Corpuscular Volume 91 fL (80-97); Mean Platelet Volume 7.3 fL (7.4-10.4); Platelet Count 128 10^3/uL (150-450); Red Blood Count 2.85 10^6 /uL (3.70-4.87); Red Cell Distribution Width 18 % (10-15); White Blood Count 5.7 10^3/uL (3.5-10.8)
[2022-05-23 05:49] LABS: ABS Eosinophils 0.1 10^3/ul (0-0.6); ABS Monocytes 0.8 10^3/ul (0-0.8); ABS Neutrophils 2.7 10^3/ul (1.5-7.7); Eosinophil % 1.9 %; Lymphocyte % 35.7 %
[2022-05-23 06:04] LABS: Calcium 6.7 mg/dL (8.6-10.3); Magnesium 1.9 mg/dL (1.9-2.7); Potassium 4.5 mmol/L (3.5-5.0); eGFR CKD-EPI 45.4 (>60)
[2022-05-23] MEDS ORDERED: Magnesium Sulfate IV 1GM/100ML 1 GM/100 ML BAG IV ONE (06:53)
[2022-05-23] MEDS: Venlafaxine 25 mg TAB (NF) PO SCH ×2 (08:08→22:04)
[2022-05-23] MEDS: Potassium Chlor 20 meq TAB.ER PO SCH (08:08)
[2022-05-23] MEDS: Heparin 5000 UNITS/ML 1 mL VIAL SUBCUT SCH ×2 (08:16→22:04)
[2022-05-23] MEDS ORDERED: Calcium Carb (TUMS) 500 mg CHEW TAB PO SCH (09:00)
[2022-05-24] MEDS: Potassium Chlor 20 meq TAB.ER PO SCH (08:40)
[2022-05-24] MEDS: Venlafaxine 25 mg TAB (NF) PO SCH (08:40)
[2022-05-24] MEDS: Heparin 5000 UNITS/ML 1 mL VIAL SUBCUT SCH (08:49)
[2022-05-24 11:45] VITALS: BP 103/65
== END 2022-05-24 12:35 | DRG 135 ==
LOC: ED 14:54 → SUATTDRO 21:57 → EDHOLD 21:57 → SSU 05-17 01:18 → MED 05-23 00:29
PROVIDERS: ADMIT Student in an Organized Health Care Education/Training Program; ATTEND Internal Medicine